=== PATIENT | male | born 1935 | race Caucasian/White ===

== ENCOUNTER → 2017-08-17 | Outpatient (CLI) | payer MEDICARE, BC ==
--- NOTE | 2017-08-17 20:41 | US ---
EXAMINATION TYPE: US kidneys/renal and bladder DATE OF EXAM: 08/17/2017 COMPARISON: NONE CLINICAL HISTORY: R94.4 ELEV BUN AND CREATNINE. Abn labs, no pain EXAM MEASUREMENTS: Right Kidney: 9.1 x 3.9 x 4.9 cm Left Kidney: 9.7 x 4.3 x 5.4 cm Right Kidney: Suboptimal visualization due to bowel gas. Two cystic lesions seen. 1: lateral= 1.9 x 1.4 x 1.5 cm. 2: mid upper = 5.0 x 4.2 x 5.4 cm Left Kidney: wnl Bladder: distended, wnl as visualized Bilateral Jets not seen There are 2 simple appearing cyst involving the right kidney. Left kidney is normal. IMPRESSION: SIMPLE APPEARING, RIGHT RENAL CYST.
== END | disposition home or self-care (01) ==
LOC: RADUSWWP 16:08
PROVIDERS: ATTEND Family Medicine
DX: R94.4 Abnormal results of kidney function studies (principal)
CPT/HCPCS: 76770

== ENCOUNTER 2017-09-30 17:48 | Emergency (ER) | payer MEDICARE, BC ==
[2017-09-30] MEDS ORDERED: RX INFO: IV CONTRAST WAS GIVEN 1 EACH MISC MISCELLANE PRN (17:50)
--- NOTE | 2017-09-30 17:54 | ED ---
General Adult HPI - General Stated complaint: CVA Time Seen by Provider: 09/30/17 17:48 Source: RN notes reviewed - History of Present Illness Initial comments: This is an 82-year-old male presents emergency Department complaining of having fallen. Patient did hit his head according to EMS he was unresponsive and had snoring respirations when family found him. Patient awoke and had right-sided paralysis of the arm which the family told EMS was new. Patient has seen normal at 4:00. Currently patient denies any complaints. Patient denies any headache patient denies any numbness or weakness patient denies chest pain palpitations difficulty breathing or shortness of breath. Patient denies any abdominal pain. - Related Data Home Medications Medication Instructions Recorded Confirmed Chlorthalidone [Hygroten] 50 mg PO DAILY 02/06/15 09/30/17 Gabapentin 800 mg PO BID 02/06/15 09/30/17 Furosemide [Lasix] 40 mg PO DAILY 09/30/17 09/30/17 hydrOXYzine PAMOATE 50 mg PO BID 09/30/17 09/30/17 metFORMIN HCL [Glucophage] 1,000 mg PO BID 09/30/17 09/30/17 Allergies Allergy/AdvReac Type Severity Reaction Status Date / Time clopidogrel bisulfate AdvReac Nausea Verified 09/30/17 18:18 [From Plavix] Review of Systems ROS Statement: Those systems with pertinent positive or pertinent negative responses have been documented in the HPI. ROS Other: All systems not noted in ROS Statement are negative. Past Medical History Past Medical History: CVA/TIA, Diabetes Mellitus History of Any Multi-Drug Resistant Organisms: None Reported Additional Past Surgical History / Comment(s): Vertigo Past Psychological History: No Psychological Hx Reported Smoking Status: Current every day smoker Past Alcohol Use History: None Reported Past Drug Use History: None Reported General Exam - General Exam Comments Initial Comments: GENERAL: Patient is well-developed and well-nourished. Patient is nontoxic and well- hydrated and is in no acute distress. ENT: Neck is soft and supple. No significant lymphadenopathy is noted. Oropharynx is clear. Moist mucous membranes. Neck has full range of motion without eliciting any pain. EYES: The sclera were anicteric and conjunctiva were pink and moist. Extraocular movements were intact and pupils were equal round and reactive to light. Eyelids were unremarkable. PULMONARY: Unlabored respirations. Good breath sounds bilaterally. No audible rales rhonchi or wheezing was noted. CARDIOVASCULAR: There is a regular rate and rhythm without any murmurs gallops or rubs. ABDOMEN: Soft and nontender with normal bowel sounds. No palpable organomegaly was noted. There is no palpable pulsatile mass. SKIN: Patient has an abrasion to the left side of his forehead NEUROLOGIC: Patient is alert and oriented x3. Cranial nerves II through XII are grossly intact. 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 Patient's left leg is weaker when he tries to lift off the bed but dorsi and plantar flexion seemed to be about the same. Normal speech, volume and content. Symmetrical smile. MUSCULOSKELETAL: Normal extremities with adequate strength and full range of motion. No lower extremity swelling or edema. No calf tenderness. LYMPHATICS: No significant lymphadenopathy is noted PSYCHIATRIC: Normal psychiatric evaluation. Course Vital Signs 09/30/17 09/30/17 09/30/17 17:50 18:05 18:20 Temperature 97.2 F L Pulse Rate 72 77 78 Respiratory 18 18 18 Rate Blood Pressure 156/70 131/58 124/59 O2 Sat by Pulse 97 97 98 Oximetry 09/30/17 09/30/17 09/30/17 18:35 18:50 19:05 Temperature Pulse Rate 62 72 83 Respiratory 18 18 18 Rate Blood Pressure 127/58 119/64 126/66 O2 Sat by Pulse 95 94 L 95 Oximetry 09/30/17 19:20 Temperature Pulse Rate 76 Respiratory 18 Rate Blood Pressure 113/78 O2 Sat by Pulse 95 Oximetry Medical Decision Making - Medical Decision Making EKG shows atrial fibrillation 71 bpm QRS is 76 QT was 46 QTC is 441. Patient's EKG shows no ST segment elevation or depression or T wave abnormalities are noted. Patient had a CT of the brain which showed that there is an old left posterior frontal lobe cortical infarct not acute in appearance. Patient also had a CTA that shows a 70% stenosis of the right carotid artery and a 50% stenosis of the left carotid artery. Patient's C-spine was also reviewed by the radiologist and he confirmed that there was no fractures. Dr. Pérez the neuro interventional is called back and wanted TPA given he spoke with the patient and the patient's family TPA was given here in the patient's [facility] after the TPA was a 2. I spoke with the ER doc done at [facility] Dr. Mcleod and she accepted the patient. - Lab Data Result diagrams: 09/30/17 18:23 09/30/17 18:23 Lab Results 09/30/17 09/30/17 09/30/17 Range/Units 18:23 18:23 18:23 WBC 7.5 (3.8-10.6) k/uL RBC 4.16 L (4.30-5.90) m/uL Hgb 11.5 L (13.0-17.5) gm/dL Hct 35.9 L (39.0-53.0) % MCV 86.4 (80.0-100.0) fL MCH 27.7 (25.0-35.0) pg MCHC 32.1 (31.0-37.0) g/dL RDW 19.5 H (11.5-15.5) % Plt Count 139 L (150-450) k/uL Neutrophils % 60 % Lymphocytes % 27 % Monocytes % 6 % Eosinophils % 5 % Basophils % 1 % Neutrophils # 4.5 (1.3-7.7) k/uL Lymphocytes # 2.0 (1.0-4.8) k/uL Monocytes # 0.4 (0-1.0) k/uL Eosinophils # 0.3 (0-0.7) k/uL Basophils # 0.1 (0-0.2) k/uL Hypochromasia Slight Anisocytosis Slight PT (9.0-12.0) sec INR (<1.2) APTT (22.0-30.0) sec Sodium 139 (137-145) mmol/L Potassium 3.8 (3.5-5.1) mmol/L Chloride 96 L (98-107) mmol/L Carbon Dioxide 35 H (22-30) mmol/L Anion Gap 8 mmol/L BUN 49 H (9-20) mg/dL Creatinine 1.93 H (0.66-1.25) mg/dL Est GFR (MDRD) Af Amer 41 (>60 ml/min/1.73 sqM) Est GFR (MDRD) Non-Af 34 (>60 ml/min/1.73 sqM) Glucose 129 H (74-99) mg/dL POC Glucose (mg/dL) (75-99) mg/dL POC Glu Centrifuge Operator ID Calcium 9.9 (8.4-10.2) mg/dL Total Bilirubin 0.4 (0.2-1.3) mg/dL AST 27 (17-59) U/L ALT 23 (21-72) U/L Alkaline Phosphatase 62 (38-126) U/L Total Creatine Kinase 56 (55-170) U/L CK-MB (CK-2) 1.4 (0.0-2.4) ng/mL CK-MB (CK-2) Rel Index 2.5 Troponin I <0.012 (0.000-0.034) ng/mL Total Protein 7.0 (6.3-8.2) g/dL Albumin 3.8 (3.5-5.0) g/dL 09/30/17 09/30/17 Range/Units 18:23 18:34 WBC (3.8-10.6) k/uL RBC (4.30-5.90) m/uL Hgb (13.0-17.5) gm/dL Hct (39.0-53.0) % MCV (80.0-100.0) fL MCH (25.0-35.0) pg MCHC (31.0-37.0) g/dL RDW (11.5-15.5) % Plt Count (150-450) k/uL Neutrophils % % Lymphocytes % % Monocytes % % Eosinophils % % Basophils % % Neutrophils # (1.3-7.7) k/uL Lymphocytes # (1.0-4.8) k/uL Monocytes # (0-1.0) k/uL Eosinophils # (0-0.7) k/uL Basophils # (0-0.2) k/uL Hypochromasia Anisocytosis PT 9.8 (9.0-12.0) sec INR 1.0 (<1.2) APTT 19.8 L (22.0-30.0) sec Sodium (137-145) mmol/L Potassium (3.5-5.1) mmol/L Chloride (98-107) mmol/L Carbon Dioxide (22-30) mmol/L Anion Gap mmol/L BUN (9-20) mg/dL Creatinine (0.66-1.25) mg/dL Est GFR (MDRD) Af Amer (>60 ml/min/1.73 sqM) Est GFR (MDRD) Non-Af (>60 ml/min/1.73 sqM) Glucose (74-99) mg/dL POC Glucose (mg/dL) 151 H (75-99) mg/dL POC Glu Centrifuge Operator Mariano Catherine Calcium (8.4-10.2) mg/dL Total Bilirubin (0.2-1.3) mg/dL AST (17-59) U/L ALT (21-72) U/L Alkaline Phosphatase (38-126) U/L Total Creatine Kinase (55-170) U/L CK-MB (CK-2) (0.0-2.4) ng/mL CK-MB (CK-2) Rel Index Troponin I (0.000-0.034) ng/mL Total Protein (6.3-8.2) g/dL Albumin (3.5-5.0) g/dL Critical Care Time Critical Care Time: Yes Total Critical Care Time: 45 Disposition Clinical Impression: Cerebrovascular accident Disposition: OTHER INSTITUTION NOT DEFINED Referrals: Omer Juan MD [Primary Care Provider] - 1-2 days Time of Disposition: 19:35 - Out of Hospital Transfer - Req. Specs Out of Hospital Transfer - Requested Specifics: Other Emergency Center ( [facility])
--- NOTE | 2017-09-30 18:17 | CT ---
EXAMINATION TYPE: CT brain wo con for TPA DATE OF EXAM: 09/30/2017 COMPARISON: 04/05/2012 HISTORY: Weakness CT DLP: mGycm Automated exposure control for dose reduction was used. FINDINGS: There is some cerebral cortical atrophy. There is a 4 cm area of hypodensity in the left posterior fr ontal lobe tellez and white matter. There is no mass effect nor midline shift. There is no sign of intr acranial hemorrhage. The calvarium is intact. IMPRESSION: CEREBRAL ATROPHY AND CHRONIC SMALL VESSEL ISCHEMIA. THERE IS OLD LEFT POSTERIOR FRONTAL LOBE CORTICAL INFARCT. THIS INFARCT IS NEW COMPARED TO OLD CT SCAN. NO ACUTE INTRACRANIAL ABNORMALITY. MILD ETHMOI D SINUSITIS IS NOTED.
[2017-09-30 18:19] VITALS: RESP 18; TEMP 97.2
[2017-09-30 18:36] LABS: Glucose,Whole Blood 151 mg/dL (75-99)
[2017-09-30 18:37] LABS: Anisocytosis Slight; Basophils # (A) 0.1 k/uL (0-0.2); Basophils % (A) 1 %; Eosinophils # (A) 0.3 k/uL (0-0.7); Eosinophils % (A) 5 %; HCT 35.9 % (39.0-53.0); HGB 11.5 gm/dL (13.0-17.5); Hypochromasia Slight; Lymphocytes % (A) 27 %; MCH 27.7 pg (25.0-35.0); MCHC 32.1 g/dL (31.0-37.0); MCV 86.4 fL (80.0-100.0); Mean Platelet Volume 8.9; Monocytes # (A) 0.4 k/uL (0-1.0); Monocytes % (A) 6 %; Neutrophils # (A) 4.5 k/uL (1.3-7.7); Neutrophils % (A) 60 %; Platelet Count 139 k/uL (150-450); RBC 4.16 m/uL (4.30-5.90); RDW 19.5 % (11.5-15.5); WBC 7.5 k/uL (3.8-10.6)
--- NOTE | 2017-09-30 18:38 | CT ---
EXAMINATION TYPE: CT angio head neck DATE OF EXAM: 09/30/2017 HISTORY: Fall with right sided weakness. History of stroke COMPARISON: NONE CT DLP: 302.4 mGycm. Automated Exposure Control for Dose Reduction was Utilized. TECHNIQUE: CTA scan of the neck is performed with IV Contrast, patient injected with 65 mL of Visipa que 320, axial images are obtained, coronal and sagittal reformatted images are reviewed. Three-D rec onstructed images are created on an independent workstation and reviewed. FINDINGS: There is normal branching pattern of the great vessels on the aortic arch. There is diffuse atheroscl erotic plaque at the aortic arch with some narrowing of the proximal left subclavian and left common carotid artery. There are diminutive vertebral arteries. There is patency of the common carotid arteries. There is pa tency of the carotid artery bifurcations. I see no carotid artery aneurysm or dissection. There is arterial flow in the vertebrobasilar artery system. There is arterial flow in the anterior m iddle and posterior cerebral arteries. There is normal appearance of the venous sinuses. There is no evidence of aneurysm or neovascularity. There is no mass effect. Left posterior frontal lobe cortical infarct is noted. There is a diminutive right anterior cerebral artery. There is a dominant left ant erior cerebral artery. There is plaque formation at the right carotid artery bifurcation and lumen na rrowing of 70%. There is 50% stenosis of the proximal left internal carotid artery due to plaque form ation. 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 50 % stenosis at the origin left internal carotid artery. 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 Left posterior frontal lobe cortical infarct.
--- NOTE | 2017-09-30 18:41 | XR ---
EXAMINATION TYPE: XR chest 1V portable DATE OF EXAM: 09/30/2017 COMPARISON: 04/05/2012 HISTORY: Altered mental status TECHNIQUE: Single frontal view of the chest is obtained. FINDINGS: Single view of the chest shows no heart failure. There is some coarsening of the lung brett ings in the mid and lower lung bell. There is no pulmonary consolidation. There are chest leads. Th ere is a relative poor inspiration. IMPRESSION: Increased lung markings compared to old exam. No gross heart failure.
[2017-09-30 18:44] LABS: Prothrombin Time 9.8 sec (9.0-12.0)
[2017-09-30 18:53] LABS: Partial Thromboplastin Time 19.8 sec (22.0-30.0)
[2017-09-30 18:57] LABS: Albumin 3.8 g/dL (3.5-5.0); Calcium 9.9 mg/dL (8.4-10.2); Creatine Kinase 56 U/L (55-170); Total Bilirubin 0.4 mg/dL (0.2-1.3)
[2017-09-30] MEDS ORDERED: ALTEPLASE BOLUS 8 MG in EMPTY SYRINGE 1 SYR IV STA (19:00)
[2017-09-30] MEDS ORDERED: ALTEPLASE IV STA (19:00)
[2017-09-30 19:06] LABS: Potassium 3.8 mmol/L (3.5-5.1)
[2017-09-30 19:09] LABS: Creatine Kinase MB 1.4 ng/mL (0.0-2.4); Troponin I <0.012 ng/mL (0.000-0.034)
[2017-09-30] MEDS ORDERED: SODIUM CHLORIDE 0.9% 500 ML IV ONE (19:48)
[2017-09-30 19:56] VITALS: BP 113/58; PULSE 78
== END 2017-09-30 20:00 | disposition other institution (70) ==
LOC: EC 17:48
DX: I63.9 Cerebral infarction, unspecified (principal); E11.9 Type 2 diabetes mellitus without complications; F17.200 Nicotine dependence, unspecified, uncomplicated; Z79.84 Long term (current) use of oral hypoglycemic drugs; Z79.899 Other long term (current) drug therapy; Z88.8 Allergy status to other drugs, medicaments and biological substances; W01.10XA Fall on same level from slipping, tripping and stumbling with subsequent striking against unspecified object, initial encounter
CPT/HCPCS: 99291; 37195; 36415; 80053; 82550; 82553; 84484; 85025; 85610; 85730; 71010; 70496; 70450; 70498; J2997; Q9967; 93005